=== PATIENT | female | born 1985 | race African-American/Black ===

== ENCOUNTER 2018-08-11 08:08 | Emergency (ER) | payer OTHER, MEDICAID ==
[~2018-08-11] VITALS: Ht 162.6 cm; Wt 72.6 kg
[2018-08-11 09:10] VITALS: BP 138/98
[2018-08-11] MEDS ORDERED: LORazepam 0.5 MG TAB PO ONE (10:30)
== END 2018-08-11 10:33 | disposition home or self-care (01) ==
LOC: ER 08:08 → EDBD 08:08 → ER 10:33
DX: F41.9 Anxiety disorder, unspecified (principal); I12.9 Hypertensive chronic kidney disease with stage 1 through stage 4 chronic kidney disease, or unspecified chronic kidney disease; N18.9 Chronic kidney disease, unspecified
CPT/HCPCS: 70450

== ENCOUNTER 2020-04-26 12:13 | Emergency (ER) | payer OTHER, MEDICAID ==
[~2020-04-26] VITALS: Ht 160 cm; Wt 77.1 kg
[2020-04-26 12:30] VITALS: BP 109/57
[2020-04-26 13:44] LABS: Albumin 3.5 g/dL (3.4-5.0); Anion Gap 11 (5-15); Basophils # (auto) 0.1 10 ^3/uL (0-0.2); Basophils % (auto) 0.8 % (0.0-2.0); Blood Urea Nitrogen 42 mg/dL (7-18); Carbon Dioxide 29 mmol/L (21-32); Chloride 98 mmol/L (98-107); Eosinophils # (auto) 0.2 10 ^3/uL (0-0.8); Eosinophils % (auto) 2.8 % (0.0-7.0); Glucose 88 mg/dL (74-106); Hematocrit 28.4 % (36.0-46.0); Hemoglobin 9.5 g/dL (12.2-16.2); Lymphocytes # (auto) 2.5 10 ^3/uL (0.4-5.4); Lymphocytes % (auto) 35.4 % (10.0-50.0); Mean Corpuscular Hemoglobin 33.4 pg (28.0-32.0); Mean Corpuscular Hgb Conc. 33.3 g/dL (32.0-36.0); Mean Corpuscular Volume 100.2 fL (80.0-100.0); Monocytes # (auto) 0.4 10 ^3/uL (0-1.3); Monocytes % (auto) 5.2 % (0.0-12.0); Neutrophils % (auto) 55.8 % (37.0-80.0); Nucleated Red Blood Cells % 0.1 %; Platelet Count (auto) 189 10^3/uL (140-450); Potassium 4.2 mmol/L (3.5-5.1); Red Blood Cells 2.83 10^6/uL (4.0-5.20); Red Cell Distribution Width 15.4 % (11.8-14.3); Sodium 138 mmol/L (136-145); White Blood Cell 7.2 10^3/uL (4.4-10.8)
[2020-04-26 13:49] LABS: Alanine Aminotransferase 10 U/L (13-56); Alkaline Phosphatase 98 U/L (45-117); Aspartate Aminotransferase 7 U/L (15-37); BUN/Creatinine Ratio 2.7; Bilirubin, Total 0.4 mg/dL (0.2-1.0); GFR African American 4 mL/min; GFR Non-African American 3 mL/min; Total Protein 7.8 g/dL (6.4-8.2)
[2020-04-26 14:18] LABS: INR 1.1 (0.9-1.15); Partial Thromboplastin Time 27.9 sec (23.0-31.2)
== END 2020-04-26 17:01 | disposition home or self-care (01) ==
LOC: ER 12:13
DX: N18.6 End stage renal disease (principal); Z99.2 Dependence on renal dialysis
CPT/HCPCS: 36415; 71045; 80053; 83880; 84484; 85025; 85610; 85730

== ENCOUNTER 2021-03-09 10:26 | Inpatient (IN) | payer OTHER, MEDICAID ==
[~2021-03-09] VITALS: Ht 160 cm; Wt 72.5 kg
[2021-03-09] MEDS ORDERED: PANTOPRAZOLE 40 MG/10 ML VIAL INJ IV ONE (11:00)
[2021-03-09] MEDS ORDERED: MORPHINE SULFATE 4 MG/ML SYR/VIAL IV ONE (11:00)
[2021-03-09] MEDS ORDERED: PROCHLORPERAZINE EDISYLATE 5 MG/ML 2ML VIAL IV ONE (11:00)
[2021-03-09 11:25] LABS: Basophils # (auto) 0.1 10 ^3/uL (0-0.2); Basophils % (auto) 1.1 % (0.0-2.0); Eosinophils # (auto) 0.1 10 ^3/uL (0-0.8); Eosinophils % (auto) 2.2 % (0.0-7.0); Lymphocytes # (auto) 1.9 10 ^3/uL (0.4-5.4); Lymphocytes % (auto) 36.5 % (10.0-50.0); Mean Corpuscular Hemoglobin 32.9 pg (28.0-32.0); Mean Corpuscular Hgb Conc. 33.5 g/dL (32.0-36.0); Mean Corpuscular Volume 98.1 fL (80.0-100.0); Monocytes # (auto) 0.4 10 ^3/uL (0-1.3); Monocytes % (auto) 7.4 % (0.0-12.0); Neutrophils # (auto) 2.7 10 ^3/uL (1.6-8.6); Neutrophils % (auto) 52.8 % (37.0-80.0); Nucleated Red Blood Cells % 0.1 %; Red Blood Cells 2.75 10^6/uL (4.0-5.20); White Blood Cell 5.2 10^3/uL (4.4-10.8)
[2021-03-09] MEDS ORDERED: HYDROmorphone HCL 2 MG/ML VL IV ONE (11:30)
[2021-03-09 11:40] LABS: Potassium 3.8 mmol/L (3.5-5.1)
[2021-03-09 11:47] LABS: Albumin 3.7 g/dL (3.4-5.0); BUN/Creatinine Ratio 2.9; Bilirubin, Total 0.4 mg/dL (0.2-1.0); Calcium 9.5 mg/dL (8.5-10.1); Total Protein 7.8 g/dL (6.4-8.2)
[2021-03-09] MEDS ORDERED: NITROGLYCERIN 0.4 MG SL TAB SL PRN (13:30)
[2021-03-09] MEDS ORDERED: MORPHINE SULFATE INJECTION 2 MG/ML SYRG IV PRN (13:30)
[2021-03-09] MEDS ORDERED: LABETALOL HCL 5 MG/ML 4ML SYRINGE IV ONE (13:45)
[2021-03-09] MEDS ORDERED: hydrALAZINE HCL 20 MG/ML VL IV ONE (13:45)
[2021-03-09] MEDS ORDERED: HYDROmorphone HCL 2 MG/ML VL IV PRN (13:45)
[2021-03-09] MEDS ORDERED: LABETALOL HCL 5 MG/ML ML 20ML VIAL IV ONE (14:11)
[2021-03-09] MEDS ORDERED: ISOSORBIDE MONONITRATE ER 60 MG TAB PO ONE (14:30)
[2021-03-09] MEDS ORDERED: BUMETANIDE 2.5mg/10ml (0.25 mg/ml) INJ IV ONE (14:30)
[2021-03-09] MEDS ORDERED: SUCRALFATE 1 GM TAB PO ONE (14:45)
[2021-03-09] MEDS ORDERED: LABETALOL HCL 5 MG/ML ML 20ML VIAL IV PRN (15:30)
[2021-03-09] MEDS ORDERED: hydrALAZINE HCL 20 MG/ML VL IV PRN (15:30)
[2021-03-09] MEDS ORDERED: diphenhdrAMINE HCL 50 MG/1 ML VL IV ONE (15:45)
[2021-03-09] MEDS: BUMETANIDE 2.5mg/10ml (0.25 mg/ml) INJ IV SCH (15:54)
[2021-03-09] MEDS: HYDROmorphone HCL 2 MG/ML VL IV PRN (15:55)
[2021-03-09] MEDS: ONDANSETRON HCL 4 MG/2 ML VIAL IV PRN (15:56)
[2021-03-09] MEDS: LATANOPROST 0.005 % OPTH(EYE) SOL 2.5ML EACHEYE SCH (22:00)
[2021-03-09] MEDS: SUCRALFATE 1 GM TAB PO SCH (22:32)
[2021-03-09] MEDS: VENLAFAXINE HCL 37.5MG TABLET PO SCH (22:34)
[2021-03-09] MEDS: GABAPENTIN 100 MG CAP PO SCH (22:35)
[2021-03-09] MEDS: APIXABAN 5 MG TAB PO SCH (22:35)
[2021-03-09] MEDS: QUEtiapine FUMARATE 100 MG TAB PO SCH (22:36)
[2021-03-10 05:35] VITALS: BP 153/100
[2021-03-10] MEDS: GABAPENTIN 100 MG CAP PO SCH ×3 (06:18→21:13)
[2021-03-10] MEDS: BUMETANIDE 2.5mg/10ml (0.25 mg/ml) INJ IV SCH ×2 (06:18→17:13)
[2021-03-10] MEDS: SUCRALFATE 1 GM TAB PO SCH ×4 (06:19→21:11)
[2021-03-10 07:36] LABS: Basophils # (auto) 0 10 ^3/uL (0-0.2); Basophils % (auto) 0.5 % (0.0-2.0); Eosinophils # (auto) 0.1 10 ^3/uL (0-0.8); Eosinophils % (auto) 0.9 % (0.0-7.0); Hematocrit 25.6 % (36.0-46.0); Hemoglobin 8.5 g/dL (12.2-16.2); Lymphocytes # (auto) 1.7 10 ^3/uL (0.4-5.4); Lymphocytes % (auto) 25.5 % (10.0-50.0); Mean Corpuscular Hemoglobin 32.6 pg (28.0-32.0); Mean Corpuscular Hgb Conc. 33.3 g/dL (32.0-36.0); Mean Corpuscular Volume 97.8 fL (80.0-100.0); Monocytes # (auto) 0.4 10 ^3/uL (0-1.3); Monocytes % (auto) 5.5 % (0.0-12.0); Neutrophils # (auto) 4.6 10 ^3/uL (1.6-8.6); Neutrophils % (auto) 67.6 % (37.0-80.0); Nucleated Red Blood Cells % 0.1 %; Red Blood Cells 2.61 10^6/uL (4.0-5.20); Red Cell Distribution Width 15.1 % (11.8-14.3); White Blood Cell 6.8 10^3/uL (4.4-10.8)
[2021-03-10 07:40] LABS: Potassium 3.9 mmol/L (3.5-5.1)
[2021-03-10 07:55] LABS: Albumin 3.5 g/dL (3.4-5.0); BUN/Creatinine Ratio 2.7; Bilirubin, Total 0.4 mg/dL (0.2-1.0); Calcium 9.3 mg/dL (8.5-10.1); Magnesium 3.8 mg/dL (1.6-2.6); Phosphorus 6.7 mg/dL (2.5-4.90); Total Protein 7.5 g/dL (6.4-8.2); Uric Acid 8.4 mg/dL (2.6-6.0)
[2021-03-10 08:00] VITALS: BP 199/103
[2021-03-10 08:04] LABS: % Iron Saturation 25.6 % (15-50)
[2021-03-10] MEDS: HYDROmorphone HCL 2 MG/ML VL IV PRN ×2 (08:25→21:16)
[2021-03-10] MEDS: ONDANSETRON HCL 4 MG/2 ML VIAL IV PRN ×2 (08:26→21:15)
[2021-03-10] MEDS ORDERED: LACTULOSE 20Gm/30ML SOLN PO PRN (09:45)
[2021-03-10] MEDS: VENLAFAXINE HCL 37.5MG TABLET PO SCH ×2 (09:46→21:12)
[2021-03-10] MEDS: APIXABAN 5 MG TAB PO SCH ×2 (09:46→21:12)
[2021-03-10] MEDS: PANTOPRAZOLE 40 MG/10 ML VIAL INJ IV SCH (10:00)
[2021-03-10] MEDS: FERRIC CITRATE 210 MG PO SCH (10:00)
[2021-03-10 10:26] LABS: INR 1.16 (0.9-1.15); Partial Thromboplastin Time 29.3 sec (23.6-33.0)
[2021-03-10] MEDS ORDERED: diphenhdrAMINE HCL 50 MG/1 ML VL IV ONE (11:15)
[2021-03-10 12:00] VITALS: BP 173/101
[2021-03-10] MEDS ORDERED: cloNIDine HCL 0.1 MG TAB PO ONE (14:30)
[2021-03-10] MEDS ORDERED: PANT40TA2 PO (14:41)
[2021-03-10] MEDS ORDERED: SUCR1TAB PO (14:41)
[2021-03-10 16:00] VITALS: BP 141/82
[2021-03-10] MEDS ORDERED: cloNIDine HCL 0.1 MG TAB PO PRN (16:00)
[2021-03-10] MEDS ORDERED: ACETAMINOPHEN 325 MG TAB PO PRN (19:45)
[2021-03-10] MEDS: QUEtiapine FUMARATE 100 MG TAB PO SCH (21:14)
[2021-03-10] MEDS: LATANOPROST 0.005 % OPTH(EYE) SOL 2.5ML EACHEYE SCH (21:21)
[2021-03-10 22:00] VITALS: BP 159/118
[2021-03-11 05:00] VITALS: BP 163/97
[2021-03-11] MEDS: GABAPENTIN 100 MG CAP PO SCH (06:14)
[2021-03-11] MEDS: BUMETANIDE 2.5mg/10ml (0.25 mg/ml) INJ IV SCH (06:14)
[2021-03-11] MEDS: SUCRALFATE 1 GM TAB PO SCH (06:15)
[2021-03-11 07:24] LABS: Potassium 3.7 mmol/L (3.5-5.1)
[2021-03-11 07:50] LABS: BUN/Creatinine Ratio 2.3; Calcium 9.3 mg/dL (8.5-10.1)
[2021-03-11] MEDS: FERRIC CITRATE 210 MG PO SCH (10:00)
[2021-03-11] MEDS: PANTOPRAZOLE 40 MG/10 ML VIAL INJ IV SCH (10:00)
[2021-03-11] MEDS: APIXABAN 5 MG TAB PO SCH (10:00)
[2021-03-11] MEDS: VENLAFAXINE HCL 37.5MG TABLET PO SCH (10:02)
[2021-03-11] MEDS: ONDANSETRON HCL 4 MG/2 ML VIAL IV PRN (10:45)
[2021-03-11 12:43] VITALS: BP 173/98
[2021-03-11 15:18] VITALS: BP 167/103
[2021-03-11 16:45] VITALS: BP 156/88
== END 2021-03-11 17:45 | disposition home or self-care (01) | DRG 391 ==
LOC: ER 10:26 → EDBD 10:26 → UNDOADMIN 13:19 → TELE 13:19 → TELE-CENTR 18:20 → TELE 18:20
PROVIDERS: ADMIT Hospitalist; ATTEND Internal Medicine Geriatric Medicine
PROC: 5A1D70Z Performance of Urinary Filtration, Intermittent, Less than 6 Hours Per Day (ICD-10-PCS; principal; 2021-03-10)
DX: K29.70 Gastritis, unspecified, without bleeding (principal); K85.90 Acute pancreatitis without necrosis or infection, unspecified; N18.6 End stage renal disease; I12.0 Hypertensive chronic kidney disease with stage 5 chronic kidney disease or end stage renal disease; I16.1 Hypertensive emergency; I27.82 Chronic pulmonary embolism; F32.9 Major depressive disorder, single episode, unspecified; K21.9 Gastro-esophageal reflux disease without esophagitis; D63.1 Anemia in chronic kidney disease; E66.01 Morbid (severe) obesity due to excess calories; F17.210 Nicotine dependence, cigarettes, uncomplicated; K59.00 Constipation, unspecified; Z20.822 Contact with and (suspected) exposure to COVID-19; Z79.01 Long term (current) use of anticoagulants; Z99.2 Dependence on renal dialysis; Z68.23 Body mass index [BMI] 23.0-23.9, adult; Z88.6 Allergy status to analgesic agent
CPT/HCPCS: 36415; 74176; 76705; 80048; 80053; 80061; 82150; 82306; 83036; 83540; 83550; 83690; 83735; 83880; 84100; 84443; 84484; 84550; 84702; 85025; 85379; 85610; 85730; 87040; 87426; 90935; 96374; 96375; C9113; G0378; J2405

== ENCOUNTER 2021-08-18 06:21 | Inpatient (IN) | payer OTHER, MEDICAID ==
[~2021-08-18] VITALS: Ht 165.1 cm; Wt 71.4 kg
[~2021-08-18 06:21] MED LIST: PANT40TA2 PO; SUCR1TAB PO
[2021-08-18] MEDS ORDERED: ASPirin 325 MG TAB PO ONE (07:00)
[2021-08-18 07:27] LABS: Basophils # (auto) 0 10 ^3/uL (0-0.2); Basophils % (auto) 1.3 % (0.0-2.0); Eosinophils # (auto) 0 10 ^3/uL (0-0.8); Hematocrit 33.3 % (36.0-46.0); Hemoglobin 10.8 g/dL (12.2-16.2); Lymphocytes # (auto) 0.5 10 ^3/uL (0.4-5.4); Mean Corpuscular Hemoglobin 32.4 pg (28.0-32.0); Mean Corpuscular Hgb Conc. 32.4 g/dL (32.0-36.0); Monocytes # (auto) 0.4 10 ^3/uL (0-1.3); Monocytes % (auto) 11.8 % (0.0-12.0); Neutrophils # (auto) 2.5 10 ^3/uL (1.6-8.6); Neutrophils % (auto) 71.9 % (37.0-80.0); Nucleated Red Blood Cells % 0.3 %; Red Blood Cells 3.33 10^6/uL (4.0-5.20); Red Cell Distribution Width 17.1 % (11.8-14.3); White Blood Cell 3.4 10^3/uL (4.4-10.8)
[2021-08-18 07:44] LABS: Albumin 3.9 g/dL (3.4-5.0); BUN/Creatinine Ratio 3.9; Calcium 10.3 mg/dL (8.5-10.1); Magnesium 2.7 mg/dL (1.6-2.6)
[2021-08-18 07:47] LABS: Bilirubin, Total 0.8 mg/dL (0.2-1.0); INR 1.29 (0.9-1.15); Partial Thromboplastin Time 31.6 sec (24.6-33.4); Total Protein 8.3 g/dL (6.4-8.2)
[2021-08-18] MEDS ORDERED: PANTOPRAZOLE 40 MG/10 ML VIAL INJ IV ONE (08:00)
[2021-08-18] MEDS ORDERED: LORazepam 2MG/ML-1ML VIAL IV ONE (08:30)
[2021-08-18] MEDS ORDERED: NITROGLYCERIN 0.4 MG SL TAB SL ONE ×2 (09:15→09:45)
[2021-08-18] MEDS ORDERED: cloNIDine HCL 0.1 MG TAB PO ONE (11:15)
[2021-08-18] MEDS ORDERED: LABETALOL HCL 5 MG/ML 4ML SYRINGE IV ONE (12:00)
[2021-08-18] MEDS ORDERED: HYDROcodone-ACET 5/325MG TAB PO PRN (13:45)
[2021-08-18] MEDS ORDERED: DOCUSATE SOD 100 MG CAP PO PRN (13:45)
[2021-08-18] MEDS ORDERED: ACETAMINOPHEN 325 MG TAB PO PRN (13:45)
[2021-08-18] MEDS: SODIUM CHLOR 0.9% PF (SALINE LOCK) 10ML VIAL/SYR IV SCH ×2 (14:40→21:59)
[2021-08-18] MEDS: HEPARIN SODIUM (PORCINE) 5000 UNITS/ML 1ML VIAL SC SCH ×2 (15:07→22:03)
[2021-08-18] MEDS ORDERED: ALBUTEROL SULF 2.5 MG/0.5ML(0.5%) NEB SOLN NEB ONE (16:30)
[2021-08-18 17:04] VITALS: BP 195/104
[2021-08-18] MEDS ORDERED: ALBUTEROL SULF 2.5 MG/0.5ML(0.5%) NEB SOLN NEB SCH (18:00)
[2021-08-18] MEDS ORDERED: IPRATROPIUM BROM 0.5 MG/2.5ML INH SOL NEB SCH (18:00)
[2021-08-18] MEDS: SUCRALFATE 1 GM TAB PO SCH ×2 (19:13→21:59)
[2021-08-18] MEDS: ALBUTEROL SULF HFA 90MCG INH 200DOSE IN SCH (21:58)
[2021-08-18] MEDS: HYDROmorphone HCL 2 MG/ML VL/or syr IV PRN (22:12)
[2021-08-19] MEDS: ONDANSETRON HCL 4 MG/2 ML VIAL IV PRN ×2 (00:57→04:56)
[2021-08-19] MEDS: HYDROmorphone HCL 2 MG/ML VL/or syr IV PRN ×5 (03:00→20:02)
[2021-08-19] MEDS: SODIUM CHLOR 0.9% PF (SALINE LOCK) 10ML VIAL/SYR IV SCH ×3 (06:18→21:54)
[2021-08-19] MEDS: HEPARIN SODIUM (PORCINE) 5000 UNITS/ML 1ML VIAL SC SCH ×3 (06:21→22:00)
[2021-08-19] MEDS: ALBUTEROL SULF HFA 90MCG INH 200DOSE IN SCH ×3 (06:59→23:41)
[2021-08-19] MEDS: SUCRALFATE 1 GM TAB PO SCH ×4 (07:00→23:21)
[2021-08-19] MEDS ORDERED: PANTOPRAZOLE 40 MG/10 ML VIAL INJ IV ONE (09:00)
[2021-08-19] MEDS ORDERED: PANTOPRAZOLE 40 MG/10 ML VIAL INJ IV SCH (10:00)
[2021-08-19] MEDS ORDERED: PANTOPRAZOLE 40 MG TAB PO SCH (10:00)
[2021-08-19 11:59] LABS: Basophils # (auto) 0 10 ^3/uL (0-0.2); Basophils % (auto) 0.5 % (0.0-2.0); Eosinophils # (auto) 0 10 ^3/uL (0-0.8); Hematocrit 32.2 % (36.0-46.0); Hemoglobin 10.4 g/dL (12.2-16.2); Lymphocytes # (auto) 1.6 10 ^3/uL (0.4-5.4); Lymphocytes % (auto) 24.5 % (10.0-50.0); Mean Corpuscular Hemoglobin 32.3 pg (28.0-32.0); Mean Corpuscular Hgb Conc. 32.4 g/dL (32.0-36.0); Mean Corpuscular Volume 99.5 fL (80.0-100.0); Monocytes # (auto) 0.4 10 ^3/uL (0-1.3); Monocytes % (auto) 5.9 % (0.0-12.0); Neutrophils # (auto) 4.5 10 ^3/uL (1.6-8.6); Neutrophils % (auto) 69.1 % (37.0-80.0); Nucleated Red Blood Cells % 0.2 %; Red Blood Cells 3.23 10^6/uL (4.0-5.20); Red Cell Distribution Width 16.7 % (11.8-14.3); White Blood Cell 6.6 10^3/uL (4.4-10.8)
[2021-08-19] MEDS ORDERED: CHOLECALCIFEROL (VITD3) 2,000 UNIT CAP/TAB PO ONE (12:00)
[2021-08-19] MEDS ORDERED: NIFEdipine ER 30 MG TAB PO ONE (12:00)
[2021-08-19] MEDS ORDERED: ZINC SULFATE 220mg CAP or TAB PO ONE (12:00)
[2021-08-19] MEDS ORDERED: ASCORBIC ACID 500 MG TAB PO ONE (12:00)
[2021-08-19] MEDS ORDERED: CARVEDILOL 12.5 MG TAB PO ONE (12:00)
[2021-08-19 12:03] LABS: Albumin 3.5 g/dL (3.4-5.0); Calcium 9.3 mg/dL (8.5-10.1); Potassium 4.3 mmol/L (3.5-5.1)
[2021-08-19 12:07] LABS: BUN/Creatinine Ratio 4.9; Bilirubin, Total 0.8 mg/dL (0.2-1.0); Total Protein 7.5 g/dL (6.4-8.2)
[2021-08-19] MEDS ORDERED: diphenhdrAMINE HCL 50 MG/1 ML VL IV ONE (13:30)
[2021-08-19] MEDS ORDERED: diphenhdrAMINE HCL 50 MG/1 ML VL ONE (13:39)
[2021-08-19] MEDS ORDERED: SODIUM CHL 0.9% 1000 ML BAG XX ONE (17:15)
[2021-08-19] MEDS: PANTOPRAZOLE 40 MG/10 ML VIAL INJ IV SCH (23:21)
[2021-08-19] MEDS: CARVEDILOL 12.5 MG TAB PO SCH (23:24)
[2021-08-20] VITALS (44 sets, daily range): BP systolic 124–179; BP diastolic 65–110
[2021-08-20] MEDS: HEPARIN SODIUM (PORCINE) 5000 UNITS/ML 1ML VIAL SC SCH ×3 (06:00→22:40)
[2021-08-20] MEDS: SODIUM CHLOR 0.9% PF (SALINE LOCK) 10ML VIAL/SYR IV SCH ×3 (06:06→20:33)
[2021-08-20] MEDS: ALBUTEROL SULF HFA 90MCG INH 200DOSE IN SCH ×3 (06:06→18:21)
[2021-08-20] MEDS: SUCRALFATE 1 GM TAB PO SCH ×4 (07:22→20:37)
[2021-08-20] MEDS: PANTOPRAZOLE 40 MG/10 ML VIAL INJ IV SCH ×2 (09:11→20:32)
[2021-08-20] MEDS: cefTRIAXone 1GM/50ML D5W 50 ML IV SCH (09:11)
[2021-08-20] MEDS: DexAMETHasone SOD PHOS 10MG/1ML VIAL INJ IV SCH (09:12)
[2021-08-20] MEDS: CARVEDILOL 12.5 MG TAB PO SCH ×2 (09:13→20:36)
[2021-08-20] MEDS: ZINC SULFATE 220mg CAP or TAB PO SCH (09:13)
[2021-08-20] MEDS: CHOLECALCIFEROL (VITD3) 2,000 UNIT CAP/TAB PO SCH (09:13)
[2021-08-20] MEDS: NIFEdipine ER 30 MG TAB PO SCH (09:14)
[2021-08-20] MEDS: ASCORBIC ACID 500 MG TAB PO SCH (09:15)
[2021-08-20] MEDS: HYDROmorphone HCL 2 MG/ML VL/or syr IV PRN ×2 (09:19→23:55)
[2021-08-20 09:42] LABS: Basophils # (auto) 0 10 ^3/uL (0-0.2); Basophils % (auto) 0.5 % (0.0-2.0); Eosinophils # (auto) 0 10 ^3/uL (0-0.8); Eosinophils % (auto) 0.1 % (0.0-7.0); Hematocrit 31.2 % (36.0-46.0); Lymphocytes # (auto) 1.1 10 ^3/uL (0.4-5.4); Lymphocytes % (auto) 21.1 % (10.0-50.0); Mean Corpuscular Hemoglobin 32.3 pg (28.0-32.0); Mean Corpuscular Hgb Conc. 32.2 g/dL (32.0-36.0); Mean Corpuscular Volume 100.1 fL (80.0-100.0); Monocytes # (auto) 0.4 10 ^3/uL (0-1.3); Monocytes % (auto) 7.1 % (0.0-12.0); Neutrophils # (auto) 3.7 10 ^3/uL (1.6-8.6); Neutrophils % (auto) 71.2 % (37.0-80.0); Red Blood Cells 3.11 10^6/uL (4.0-5.20); Red Cell Distribution Width 16.8 % (11.8-14.3); White Blood Cell 5.2 10^3/uL (4.4-10.8)
[2021-08-20 09:53] LABS: BUN/Creatinine Ratio 4.9; Calcium 8.9 mg/dL (8.5-10.1); Potassium 4.2 mmol/L (3.5-5.1)
[2021-08-20] MEDS: OXYCODONE W/ ACETAMINOPHEN 5/325MG TABLET PO PRN ×2 (14:10→20:38)
[2021-08-20] MEDS ORDERED: CYCL-839 PO (15:54)
[2021-08-20] MEDS ORDERED: QUET50TA PO (15:54)
[2021-08-20] MEDS ORDERED: GABA300C10 PO (15:54)
[2021-08-20] MEDS ORDERED: LATA0.0019 EACHEYE (15:54)
[2021-08-20] MEDS ORDERED: BUME2TAB5 PO (15:54)
[2021-08-20] MEDS ORDERED: CARV12.544 PO (15:54)
[2021-08-20] MEDS ORDERED: APIX5TAB PO (15:54)
[2021-08-20] MEDS ORDERED: PERCOT PO (15:54)
[2021-08-20] MEDS ORDERED: AMLO-496 PO (15:54)
[2021-08-20] MEDS ORDERED: QUET200T30 PO (15:54)
[2021-08-20] MEDS ORDERED: ALPR1TAB7 PO (15:54)
[2021-08-20] MEDS: cloNIDine HCL 0.1 MG TAB PO PRN (16:33)
[2021-08-21] VITALS (8 sets, daily range): BP systolic 131–162; BP diastolic 73–100
[2021-08-21] MEDS: OXYCODONE W/ ACETAMINOPHEN 5/325MG TABLET PO PRN ×3 (02:37→16:56)
[2021-08-21 03:48] LABS: Basophils # (auto) 0 10 ^3/uL (0-0.2); Basophils % (auto) 0.1 % (0.0-2.0); Eosinophils # (auto) 0 10 ^3/uL (0-0.8); Eosinophils % (auto) 0.1 % (0.0-7.0); Hematocrit 28.6 % (36.0-46.0); Hemoglobin 9.5 g/dL (12.2-16.2); Lymphocytes # (auto) 0.7 10 ^3/uL (0.4-5.4); Lymphocytes % (auto) 29.7 % (10.0-50.0); Mean Corpuscular Hemoglobin 32.2 pg (28.0-32.0); Mean Corpuscular Hgb Conc. 33.1 g/dL (32.0-36.0); Mean Corpuscular Volume 97.4 fL (80.0-100.0); Monocytes # (auto) 0.2 10 ^3/uL (0-1.3); Monocytes % (auto) 9.2 % (0.0-12.0); Neutrophils # (auto) 1.5 10 ^3/uL (1.6-8.6); Neutrophils % (auto) 60.9 % (37.0-80.0); Nucleated Red Blood Cells % 0.1 %; Red Blood Cells 2.94 10^6/uL (4.0-5.20); White Blood Cell 2.4 10^3/uL (4.4-10.8)
[2021-08-21 03:58] LABS: BUN/Creatinine Ratio 5.5; Calcium 8.3 mg/dL (8.5-10.1); Potassium 4.7 mmol/L (3.5-5.1)
[2021-08-21] MEDS: HEPARIN SODIUM (PORCINE) 5000 UNITS/ML 1ML VIAL SC SCH ×2 (06:00→22:00)
[2021-08-21] MEDS: ALBUTEROL SULF HFA 90MCG INH 200DOSE IN SCH ×4 (06:00→22:15)
[2021-08-21] MEDS: SODIUM CHLOR 0.9% PF (SALINE LOCK) 10ML VIAL/SYR IV SCH ×3 (06:00→21:52)
[2021-08-21] MEDS ORDERED: SODIUM CHL 0.9% 1000 ML BAG XX ONE (07:00)
[2021-08-21] MEDS: SUCRALFATE 1 GM TAB PO SCH ×4 (07:48→21:50)
[2021-08-21] MEDS: cefTRIAXone 1GM/50ML D5W 50 ML IV SCH (08:45)
[2021-08-21] MEDS: ZINC SULFATE 220mg CAP or TAB PO SCH (09:33)
[2021-08-21] MEDS: CARVEDILOL 12.5 MG TAB PO SCH ×2 (09:33→21:51)
[2021-08-21] MEDS: ASCORBIC ACID 500 MG TAB PO SCH (09:33)
[2021-08-21] MEDS: NIFEdipine ER 30 MG TAB PO SCH (09:34)
[2021-08-21] MEDS: DexAMETHasone SOD PHOS 10MG/1ML VIAL INJ IV SCH (11:39)
[2021-08-21] MEDS: PANTOPRAZOLE 40 MG/10 ML VIAL INJ IV SCH ×2 (11:40→21:50)
[2021-08-21] MEDS: CHOLECALCIFEROL (VITD3) 2,000 UNIT CAP/TAB PO SCH (11:41)
[2021-08-21] MEDS ORDERED: NIFEdipine ER 30 MG TAB PO ONE (11:45)
[2021-08-21] MEDS ORDERED: diphenhdrAMINE HCL 25 MG CAP PO PRN (12:30)
[2021-08-21] MEDS: cloNIDine HCL 0.1 MG TAB PO PRN (17:04)
[2021-08-21] MEDS: HYDROmorphone HCL 2 MG/ML VL/or syr IV PRN (23:49)
[2021-08-22 05:00] VITALS: BP 162/98
[2021-08-22 05:45] LABS: Basophils # (auto) 0 10 ^3/uL (0-0.2); Basophils % (auto) 0.1 % (0.0-2.0); Eosinophils # (auto) 0 10 ^3/uL (0-0.8); Lymphocytes # (auto) 0.8 10 ^3/uL (0.4-5.4); Lymphocytes % (auto) 20.5 % (10.0-50.0); Mean Corpuscular Hemoglobin 32.5 pg (28.0-32.0); Mean Corpuscular Hgb Conc. 32.2 g/dL (32.0-36.0); Mean Corpuscular Volume 100.7 fL (80.0-100.0); Monocytes # (auto) 0.3 10 ^3/uL (0-1.3); Monocytes % (auto) 8.4 % (0.0-12.0); Neutrophils # (auto) 2.7 10 ^3/uL (1.6-8.6); Nucleated Red Blood Cells % 0.1 %; Red Blood Cells 3.08 10^6/uL (4.0-5.20); Red Cell Distribution Width 16.2 % (11.8-14.3); White Blood Cell 3.8 10^3/uL (4.4-10.8)
[2021-08-22] MEDS: HEPARIN SODIUM (PORCINE) 5000 UNITS/ML 1ML VIAL SC SCH ×2 (06:00→14:00)
[2021-08-22 06:01] LABS: Calcium 8.8 mg/dL (8.5-10.1); Potassium 4.2 mmol/L (3.5-5.1)
[2021-08-22 06:04] LABS: BUN/Creatinine Ratio 5.4
[2021-08-22] MEDS: ALBUTEROL SULF HFA 90MCG INH 200DOSE IN SCH ×2 (06:25→14:00)
[2021-08-22] MEDS: SODIUM CHLOR 0.9% PF (SALINE LOCK) 10ML VIAL/SYR IV SCH ×2 (06:40→14:00)
[2021-08-22] MEDS: SUCRALFATE 1 GM TAB PO SCH ×3 (06:41→17:00)
[2021-08-22] MEDS: cloNIDine HCL 0.1 MG TAB PO PRN ×2 (07:10→16:08)
[2021-08-22 09:00] VITALS: BP 161/105
[2021-08-22] MEDS: PANTOPRAZOLE 40 MG/10 ML VIAL INJ IV SCH (09:33)
[2021-08-22] MEDS: DexAMETHasone SOD PHOS 10MG/1ML VIAL INJ IV SCH (09:33)
[2021-08-22] MEDS: cefTRIAXone 1GM/50ML D5W 50 ML IV SCH (09:33)
[2021-08-22] MEDS: ZINC SULFATE 220mg CAP or TAB PO SCH (09:34)
[2021-08-22] MEDS: CARVEDILOL 12.5 MG TAB PO SCH (09:35)
[2021-08-22] MEDS: CHOLECALCIFEROL (VITD3) 2,000 UNIT CAP/TAB PO SCH (09:36)
[2021-08-22] MEDS: ASCORBIC ACID 500 MG TAB PO SCH (09:37)
[2021-08-22] MEDS: OXYCODONE W/ ACETAMINOPHEN 5/325MG TABLET PO PRN (09:51)
[2021-08-22] MEDS ORDERED: NIFEdipine ER 30 MG TAB PO SCH (10:00)
[2021-08-22] MEDS ORDERED: CARVEDILOL 12.5 MG TAB PO ONE (11:15)
[2021-08-22] MEDS ORDERED: LISINOPRIL 20 MG TAB PO ONE (11:15)
[2021-08-22] MEDS ORDERED: CHOL1CAP47 PO (11:54)
[2021-08-22] MEDS ORDERED: ASCO500T11 PO (11:54)
[2021-08-22] MEDS ORDERED: LISI20TA28 PO (11:54)
[2021-08-22] MEDS ORDERED: DEXA6TAB PO (11:54)
[2021-08-22] MEDS ORDERED: ZINC220C10 PO (11:57)
[2021-08-22 13:00] VITALS: BP 151/91
[2021-08-22 17:00] VITALS: BP 149/95
[2021-08-22 17:40] VITALS: BP 149/95
[2021-08-22] MEDS ORDERED: LISINOPRIL 20 MG TAB PO SCH (22:00)
[2021-08-22] MEDS ORDERED: CARVEDILOL 12.5 MG TAB PO SCH (22:00)
== END 2021-08-22 18:25 | disposition home or self-care (01) | DRG 177 ==
LOC: ER 06:21 → EDBD 06:21 → TELE 13:45 → ICU WEST 08-20 07:26 → TELE-WESTW 08-21 03:55
PROVIDERS: ADMIT Internal Medicine; ATTEND Internal Medicine Geriatric Medicine
PROC: 5A1D70Z Performance of Urinary Filtration, Intermittent, Less than 6 Hours Per Day (ICD-10-PCS; 2021-08-19)
PROC: 5A1D70Z Performance of Urinary Filtration, Intermittent, Less than 6 Hours Per Day (ICD-10-PCS; principal; 2021-08-21)
DX: U07.1 COVID-19 (principal); I21.4 Non-ST elevation (NSTEMI) myocardial infarction; I50.33 Acute on chronic diastolic (congestive) heart failure; N18.6 End stage renal disease; J96.00 Acute respiratory failure, unspecified whether with hypoxia or hypercapnia; K85.90 Acute pancreatitis without necrosis or infection, unspecified; I13.2 Hypertensive heart and chronic kidney disease with heart failure and with stage 5 chronic kidney disease, or end stage renal disease; I16.1 Hypertensive emergency; J98.11 Atelectasis; F31.30 Bipolar disorder, current episode depressed, mild or moderate severity, unspecified; K92.2 Gastrointestinal hemorrhage, unspecified; D63.1 Anemia in chronic kidney disease; G40.909 Epilepsy, unspecified, not intractable, without status epilepticus; E83.39 Other disorders of phosphorus metabolism; F12.90 Cannabis use, unspecified, uncomplicated; F17.210 Nicotine dependence, cigarettes, uncomplicated; G89.4 Chronic pain syndrome; Z91.15 Patient's noncompliance with renal dialysis; Z99.2 Dependence on renal dialysis; Z86.711 Personal history of pulmonary embolism; Z88.5 Allergy status to narcotic agent
CPT/HCPCS: 36415; 71045; 80048; 80053; 80061; 82728; 83735; 83880; 84443; 84484; 85025; 85379; 85610; 85730; 87081; 90935; 93005; 94640; 96374; 96375; 99291; C9113; G0378; J0696; J1100; J2405; J3490

== ENCOUNTER 2022-05-16 15:24 | Inpatient (IN) | payer OTHER, MEDICAID ==
[~2022-05-16] VITALS: Ht 160 cm; Wt 79.0 kg
[~2022-05-16 15:24] MED LIST changes: +ALPR1TAB7 PO; +AMLO-496 PO; +APIX5TAB PO; +ASCO500T11 PO; +BUME2TAB5 PO; +CHOL1CAP47 PO; +CYCL-839 PO; +DEXA6TAB PO; +GABA300C10 PO; +LATA0.0019 EACHEYE; +LISI20TA28 PO; +PERCOT PO; +QUET200T30 PO; +QUET50TA PO; +ZINC220C10 PO
[2022-05-16 16:19] LABS: Basophils # (auto) 0 10 ^3/uL (0-0.2); Basophils % (auto) 0.2 % (0.0-2.0); Eosinophils # (auto) 0 10 ^3/uL (0-0.8); Hemoglobin 10.5 g/dL (12.2-16.2); Lymphocytes # (auto) 0.8 10 ^3/uL (0.4-5.4); Lymphocytes % (auto) 5.5 % (10.0-50.0); Mean Corpuscular Hemoglobin 32.2 pg (28.0-32.0); Mean Corpuscular Hgb Conc. 32.7 g/dL (32.0-36.0); Mean Corpuscular Volume 98.3 fL (80.0-100.0); Monocytes # (auto) 0.4 10 ^3/uL (0-1.3); Monocytes % (auto) 2.9 % (0.0-12.0); Neutrophils # (auto) 13.5 10 ^3/uL (1.6-8.6); Neutrophils % (auto) 91.4 % (37.0-80.0); Nucleated Red Blood Cells % 0.1 %; Red Blood Cells 3.26 10^6/uL (4.0-5.20); Red Cell Distribution Width 15.5 % (11.8-14.3); White Blood Cell 14.8 10^3/uL (4.4-10.8)
[2022-05-16 17:13] LABS: Albumin 3.3 g/dL (3.4-5.0); Calcium 8.9 mg/dL (8.5-10.1); Potassium 4.3 mmol/L (3.5-5.1)
[2022-05-16] MEDS ORDERED: PIPERACILLIN-TAZOB 3.375GM 100 ML IV ONE (17:15)
[2022-05-16] MEDS ORDERED: AZITHROMYCIN 500MG/ 250ML 250 ML IV ONE (17:15)
[2022-05-16 17:16] LABS: BUN/Creatinine Ratio 3.4 (10.0-20.0)
[2022-05-16 17:17] LABS: Bilirubin, Total 0.6 mg/dL (0.2-1.0); Total Protein 8.4 g/dL (6.4-8.2)
[2022-05-16] MEDS ORDERED: metroNIDAZOLE 500MG/100ML 100 ML IV ONE (17:45)
[2022-05-16] MEDS ORDERED: PANTOPRAZOLE 40 MG/10 ML VIAL INJ IV ONE (19:00)
[2022-05-16] MEDS ORDERED: MORPHINE SULFATE INJ 2 MG/ml SYRG IV PRN (19:00)
[2022-05-17] MEDS: metroNIDAZOLE 500MG/100ML 100 ML IV SCH ×4 (00:32→23:04)
[2022-05-17] MEDS: LISINOPRIL 20 MG TAB PO SCH ×3 (00:33→23:07)
[2022-05-17] MEDS: APIXABAN 5 MG TAB PO SCH ×3 (00:34→23:05)
[2022-05-17] MEDS ORDERED: cefTRIAXone 1GM/50ML D5W 50 ML IV SCH (09:00)
[2022-05-17 09:33] LABS: Basophils # (auto) 0.1 10 ^3/uL (0-0.2); Basophils % (auto) 0.5 % (0.0-2.0); Eosinophils # (auto) 0 10 ^3/uL (0-0.8); Eosinophils % (auto) 0.4 % (0.0-7.0); Hematocrit 32.5 % (36.0-46.0); Hemoglobin 10.5 g/dL (12.2-16.2); Lymphocytes # (auto) 1.5 10 ^3/uL (0.4-5.4); Lymphocytes % (auto) 13.5 % (10.0-50.0); Mean Corpuscular Hemoglobin 32.6 pg (28.0-32.0); Mean Corpuscular Hgb Conc. 32.4 g/dL (32.0-36.0); Mean Corpuscular Volume 100.4 fL (80.0-100.0); Monocytes # (auto) 0.6 10 ^3/uL (0-1.3); Monocytes % (auto) 5.5 % (0.0-12.0); Neutrophils % (auto) 80.1 % (37.0-80.0); Nucleated Red Blood Cells % 0.1 %; Red Blood Cells 3.24 10^6/uL (4.0-5.20); Red Cell Distribution Width 15.2 % (11.8-14.3); White Blood Cell 11.2 10^3/uL (4.4-10.8)
[2022-05-17 09:55] LABS: Albumin 3.3 g/dL (3.4-5.0); Potassium 4.8 mmol/L (3.5-5.1)
[2022-05-17 09:58] LABS: BUN/Creatinine Ratio 3.7 (10.0-20.0); Bilirubin, Total 0.5 mg/dL (0.2-1.0); Calcium 9.1 mg/dL (8.5-10.1); Total Protein 7.8 g/dL (6.4-8.2)
[2022-05-17] MEDS ORDERED: ZINC SULFATE 220mg CAP or TAB PO SCH (10:00)
[2022-05-17] MEDS ORDERED: ASCORBIC ACID 500 MG TAB PO SCH (10:00)
[2022-05-17] MEDS: CHOLECALCIFEROL (VITD3) 2,000 UNIT CAP/TAB PO SCH (10:56)
[2022-05-17] MEDS: PANTOPRAZOLE 40 MG/10 ML VIAL INJ IV SCH (10:56)
[2022-05-17] MEDS: amLODIPine BESYLATE 5 MG TAB PO SCH (10:57)
[2022-05-17] MEDS ORDERED: HYDROmorphone HCL 2 MG/ML VL/or syr IV PRN ×2 (12:00→16:30)
[2022-05-17] MEDS: OXYCODONE W/ ACETAMINOPHEN 5/325MG TABLET PO PRN (12:29)
[2022-05-17] MEDS ORDERED: hydrALAZINE HCL 20 MG/ML VL IV PRN (15:45)
[2022-05-17 23:29] VITALS: BP_SYST 145; BP_DIAS 68; BP_DIAS 75
[2022-05-18] MEDS: PIPERACILLIN-TAZOB 3.375GM 100 ML IV SCH ×3 (00:48→23:38)
[2022-05-18] MEDS: OXYCODONE W/ ACETAMINOPHEN 5/325MG TABLET PO PRN ×2 (02:27→10:21)
[2022-05-18] MEDS: metroNIDAZOLE 500MG/100ML 100 ML IV SCH ×3 (06:38→22:18)
[2022-05-18 09:00] VITALS: BP 157/97
[2022-05-18] MEDS ORDERED: diphenhdrAMINE HCL 50 MG/1 ML VL IV PRN (10:15)
[2022-05-18] MEDS: amLODIPine BESYLATE 5 MG TAB PO SCH (10:19)
[2022-05-18] MEDS: APIXABAN 5 MG TAB PO SCH ×2 (10:19→22:00)
[2022-05-18] MEDS: CHOLECALCIFEROL (VITD3) 2,000 UNIT CAP/TAB PO SCH (10:19)
[2022-05-18] MEDS: LISINOPRIL 20 MG TAB PO SCH ×2 (10:20→22:00)
[2022-05-18] MEDS: PANTOPRAZOLE 40 MG/10 ML VIAL INJ IV SCH (10:20)
[2022-05-18] MEDS ORDERED: SODIUM CHL 0.9% 1000 ML BAG XX ONE (10:30)
[2022-05-18 13:00] VITALS: BP 148/81
[2022-05-18 13:25] LABS: Basophils # (auto) 0 10 ^3/uL (0-0.2); Basophils % (auto) 0.3 % (0.0-2.0); Eosinophils # (auto) 0.1 10 ^3/uL (0-0.8); Eosinophils % (auto) 1.8 % (0.0-7.0); Hemoglobin 9.8 g/dL (12.2-16.2); Lymphocytes % (auto) 19.3 % (10.0-50.0); Mean Corpuscular Hemoglobin 32.3 pg (28.0-32.0); Mean Corpuscular Hgb Conc. 32.6 g/dL (32.0-36.0); Mean Corpuscular Volume 98.8 fL (80.0-100.0); Monocytes # (auto) 0.5 10 ^3/uL (0-1.3); Monocytes % (auto) 9.4 % (0.0-12.0); Neutrophils # (auto) 3.7 10 ^3/uL (1.6-8.6); Neutrophils % (auto) 69.2 % (37.0-80.0); Nucleated Red Blood Cells % 0.1 %; Red Blood Cells 3.03 10^6/uL (4.0-5.20); Red Cell Distribution Width 15.2 % (11.8-14.3); White Blood Cell 5.4 10^3/uL (4.4-10.8)
[2022-05-18 13:57] LABS: Potassium 4.7 mmol/L (3.5-5.1)
[2022-05-18 14:04] LABS: Albumin 3.1 g/dL (3.4-5.0); BUN/Creatinine Ratio 4.1 (10.0-20.0); Bilirubin, Total 0.5 mg/dL (0.2-1.0); Calcium 8.6 mg/dL (8.5-10.1); Total Protein 7.9 g/dL (6.4-8.2)
[2022-05-18] MEDS ORDERED: HYDROmorphone HCL 2 MG/ML VL/or syr IV PRN (14:45)
[2022-05-18] MEDS: HYDROmorphone HCL 2 MG/ML VL/or syr IV PRN (15:25)
[2022-05-18 17:00] VITALS: BP 170/86
[2022-05-18 22:00] VITALS: BP 148/81
[2022-05-19] MEDS: HYDROmorphone HCL 2 MG/ML VL/or syr IV PRN (00:30)
[2022-05-19] MEDS: cloNIDine HCL 0.1 MG TAB PO PRN ×2 (04:04→09:40)
[2022-05-19 05:00] VITALS: BP 167/97
[2022-05-19] MEDS: metroNIDAZOLE 500MG/100ML 100 ML IV SCH ×2 (06:00→14:00)
[2022-05-19 07:12] LABS: Basophils # (auto) 0 10 ^3/uL (0-0.2); Basophils % (auto) 0.7 % (0.0-2.0); Eosinophils # (auto) 0.1 10 ^3/uL (0-0.8); Eosinophils % (auto) 1.7 % (0.0-7.0); Hematocrit 30.3 % (36.0-46.0); Hemoglobin 10.1 g/dL (12.2-16.2); Lymphocytes # (auto) 0.8 10 ^3/uL (0.4-5.4); Lymphocytes % (auto) 23.8 % (10.0-50.0); Mean Corpuscular Hemoglobin 32.3 pg (28.0-32.0); Mean Corpuscular Hgb Conc. 33.4 g/dL (32.0-36.0); Mean Corpuscular Volume 96.9 fL (80.0-100.0); Monocytes # (auto) 0.1 10 ^3/uL (0-1.3); Monocytes % (auto) 2.8 % (0.0-12.0); Neutrophils # (auto) 2.3 10 ^3/uL (1.6-8.6); Nucleated Red Blood Cells % 0.2 %; Red Blood Cells 3.12 10^6/uL (4.0-5.20); White Blood Cell 3.3 10^3/uL (4.4-10.8)
[2022-05-19 07:45] LABS: Albumin 3.1 g/dL (3.4-5.0); Anion Gap 11 (5-15); Blood Urea Nitrogen 64 mg/dL (7-18); Calcium 8.6 mg/dL (8.5-10.1); Carbon Dioxide 25 mmol/L (21-32); Chloride 97 mmol/L (98-107); Glucose 107 mg/dL (74-106); Potassium 4.2 mmol/L (3.5-5.1); Sodium 133 mmol/L (136-145)
[2022-05-19 07:50] LABS: Alanine Aminotransferase 10 U/L (13-56); Alkaline Phosphatase 64 U/L (45-117); Aspartate Aminotransferase < 3 U/L (15-37); BUN/Creatinine Ratio 4.1 (10.0-20.0); Bilirubin, Total 0.5 mg/dL (0.2-1.0); GFR African American 3 mL/min; GFR Non-African American 3 mL/min; Total Protein 8.1 g/dL (6.4-8.2)
[2022-05-19 09:00] VITALS: BP 194/98
[2022-05-19] MEDS ORDERED: AUG875T PO (09:26)
[2022-05-19] MEDS: PANTOPRAZOLE 40 MG/10 ML VIAL INJ IV SCH (09:37)
[2022-05-19] MEDS: CHOLECALCIFEROL (VITD3) 2,000 UNIT CAP/TAB PO SCH (09:40)
[2022-05-19] MEDS: APIXABAN 5 MG TAB PO SCH (09:40)
[2022-05-19] MEDS: amLODIPine BESYLATE 5 MG TAB PO SCH (09:42)
[2022-05-19] MEDS: LISINOPRIL 20 MG TAB PO SCH (09:43)
[2022-05-19] MEDS: PIPERACILLIN-TAZOB 3.375GM 100 ML IV SCH (12:05)
[2022-05-19] MEDS: OXYCODONE W/ ACETAMINOPHEN 5/325MG TABLET PO PRN (12:48)
[2022-05-19 12:57] VITALS: BP 130/70
[2022-05-19 13:18] VITALS: BP 130/76
[2022-05-19 14:31] LABS: Hepatitis A Ab IgM Negative
[2022-05-19 14:32] LABS: Hepatitis B Core IgM Negative; Hepatitis C Antibody Negative (Negative)
== END 2022-05-19 14:20 | disposition home or self-care (01) | DRG 391 ==
LOC: ER 15:24 → EDBD 15:24 → OVERFLOW 19:03 → CENTRAL 05-17 21:36
PROVIDERS: ADMIT Nurse Practitioner Family; ATTEND Internal Medicine
PROC: 5A1D70Z Performance of Urinary Filtration, Intermittent, Less than 6 Hours Per Day (ICD-10-PCS; principal; 2022-05-18)
DX: K52.9 Noninfective gastroenteritis and colitis, unspecified (principal); N18.6 End stage renal disease; E46 Unspecified protein-calorie malnutrition; I12.0 Hypertensive chronic kidney disease with stage 5 chronic kidney disease or end stage renal disease; Z68.30 Body mass index [BMI] 30.0-30.9, adult; D64.9 Anemia, unspecified; G40.909 Epilepsy, unspecified, not intractable, without status epilepticus; G89.4 Chronic pain syndrome; K80.20 Calculus of gallbladder without cholecystitis without obstruction; F17.210 Nicotine dependence, cigarettes, uncomplicated; E66.9 Obesity, unspecified; Z20.822 Contact with and (suspected) exposure to COVID-19; Z99.2 Dependence on renal dialysis; Z88.5 Allergy status to narcotic agent
CPT/HCPCS: 36415; 71045; 74176; 76705; 80053; 80074; 82150; 83605; 83690; 85025; 87040; 87081; 87426; 90935; C9113; G0378; J0696; J2543; J3490

== ENCOUNTER 2022-09-06 10:05 | Inpatient (IN) | payer OTHER, MEDICAID ==
[~2022-09-06] VITALS: Ht 157.5 cm; Wt 78.5 kg
[~2022-09-06 10:05] MED LIST changes: -AMLO-496 PO; +AMLO1TAB23 PO; -ASCO500T11 PO; +AUG875T PO; -DEXA6TAB PO; +GABA-1250 PO; -GABA300C10 PO; -LATA0.0019 EACHEYE; +LATA0.008 EACHEYE; -LISI20TA28 PO; +LISI20TA56 PO; -ZINC220C10 PO
[2022-09-06 11:00] VITALS: PULSE 89; RESP 18; O2SAT 96
[2022-09-06 11:43] LABS: Basophils # (auto) 0 10 ^3/uL (0-0.2); Basophils % (auto) 0.9 % (0.0-2.0); Eosinophils # (auto) 0.1 10 ^3/uL (0-0.8); Eosinophils % (auto) 1.9 % (0.0-7.0); Hemoglobin 10.3 g/dL (12.2-16.2); Lymphocytes # (auto) 1.5 10 ^3/uL (0.4-5.4); Lymphocytes % (auto) 35.3 % (10.0-50.0); Mean Corpuscular Hemoglobin 32.8 pg (28.0-32.0); Mean Corpuscular Hgb Conc. 33.3 g/dL (32.0-36.0); Mean Corpuscular Volume 98.5 fL (80.0-100.0); Monocytes # (auto) 0.3 10 ^3/uL (0-1.3); Monocytes % (auto) 7.1 % (0.0-12.0); Neutrophils # (auto) 2.3 10 ^3/uL (1.6-8.6); Neutrophils % (auto) 54.8 % (37.0-80.0); Nucleated Red Blood Cells % 0.1 %; Red Blood Cells 3.15 10^6/uL (4.0-5.20); Red Cell Distribution Width 14.5 % (11.8-14.3); White Blood Cell 4.2 10^3/uL (4.4-10.8)
[2022-09-06] MEDS ORDERED: PANTOPRAZOLE 40 MG/10 ML VIAL INJ IV ONE (11:45)
[2022-09-06] MEDS ORDERED: PROCHLORPERAZINE EDISYLATE 5 MG/ML 2ML VIAL IM ONE (11:45)
[2022-09-06 12:16] LABS: Albumin 3.6 g/dL (3.4-5.0); Calcium 8.2 mg/dL (8.5-10.1); Magnesium 2.8 mg/dL (1.6-2.6); Potassium 4.7 mmol/L (3.5-5.1)
[2022-09-06 12:32] LABS: BUN/Creatinine Ratio 3.3 (10.0-20.0); Bilirubin, Total 0.4 mg/dL (0.2-1.0); Total Protein 7.8 g/dL (6.4-8.2)
[2022-09-06] MEDS ORDERED: amLODIPine BESYLATE 5 MG TAB ONE (13:23)
[2022-09-06] MEDS ORDERED: LISINOPRIL 20 MG TAB ONE (13:23)
[2022-09-06] MEDS ORDERED: ACETAMINOPHEN 325 MG TAB PO PRN (13:30)
[2022-09-06] MEDS ORDERED: amLODIPine BESYLATE 5 MG TAB PO ONE (13:30)
[2022-09-06] MEDS ORDERED: HYDROmorphone HCL 2 MG/ML VL/or syr IV PRN (13:30)
[2022-09-06] MEDS ORDERED: DOCUSATE SOD 100 MG CAP PO PRN (13:30)
[2022-09-06] MEDS ORDERED: LISINOPRIL 20 MG TAB PO ONE (13:30)
[2022-09-06] MEDS ORDERED: IOHEXOL 300 MG/ML 100ML BOTTLE IJ ONE (14:27)
[2022-09-06] MEDS: CYCLOBENZAPRINE HCL 10 MG TAB PO SCH ×2 (14:28→21:59)
[2022-09-06] MEDS: SODIUM CHLOR 0.9% PF (SALINE LOCK) 10ML VIAL/SYR IV SCH ×2 (14:29→21:55)
[2022-09-06] MEDS ORDERED: LABETALOL HCL 5 MG/ML 4ML SYRINGE IV ONE (14:45)
[2022-09-06] MEDS ORDERED: LABETALOL HCL 5 MG/ML 4ML SYRINGE IV PRN (14:45)
[2022-09-06] MEDS: SUCRALFATE 1 GM TAB PO SCH ×2 (17:57→21:59)
[2022-09-06] MEDS ORDERED: LATANOPROST 0.005 % OPTH(EYE) SOL 2.5ML EACHEYE SCH (18:00)
[2022-09-06] MEDS: hydrALAZINE HCL 20 MG/ML VL IV PRN (18:46)
[2022-09-06] MEDS: APIXABAN 5 MG TAB PO SCH (21:59)
[2022-09-06] MEDS: LISINOPRIL 20 MG TAB PO SCH (22:01)
[2022-09-06] MEDS: ONDANSETRON HCL 4 MG/2 ML VIAL IV PRN (22:08)
[2022-09-07] MEDS: hydrALAZINE HCL 20 MG/ML VL IV PRN ×2 (02:44→15:50)
[2022-09-07] MEDS: SODIUM CHLOR 0.9% PF (SALINE LOCK) 10ML VIAL/SYR IV SCH ×3 (05:49→14:40)
[2022-09-07] MEDS: CYCLOBENZAPRINE HCL 10 MG TAB PO SCH ×3 (06:06→14:04)
[2022-09-07] MEDS: SUCRALFATE 1 GM TAB PO SCH ×3 (06:06→16:45)
[2022-09-07] MEDS: ONDANSETRON HCL 4 MG/2 ML VIAL IV PRN (09:08)
[2022-09-07 09:33] VITALS: BP 149/86; PULSE 107; RESP 16; TEMP 98.5; O2SAT 95
[2022-09-07] MEDS ORDERED: CHOLECALCIFEROL (VITD3) 2,000 UNIT CAP/TAB PO SCH (10:00)
[2022-09-07] MEDS ORDERED: PANTOPRAZOLE 40 MG/10 ML VIAL INJ IV SCH (10:00)
[2022-09-07] MEDS ORDERED: PATIENTS OWN MEDICATION (Amlodipine Besylate 10 MG) PO SCH (10:00)
[2022-09-07] MEDS ORDERED: BUMETANIDE 1 MG TAB PO SCH (10:00)
[2022-09-07] MEDS ORDERED: amLODIPine BESYLATE 5 MG TAB PO SCH (10:00)
[2022-09-07] MEDS: APIXABAN 5 MG TAB PO SCH (10:17)
[2022-09-07] MEDS: LISINOPRIL 20 MG TAB PO SCH (10:17)
[2022-09-07] MEDS ORDERED: SODIUM CHL 0.9% 1000 ML BAG XX ONE (11:15)
[2022-09-07 12:42] VITALS: BP 165/94; PULSE 110; RESP 16; TEMP 98.2; O2SAT 98
[2022-09-07 13:16] LABS: Basophils # (auto) 0 10 ^3/uL (0-0.2); Basophils % (auto) 0.6 % (0.0-2.0); Eosinophils # (auto) 0 10 ^3/uL (0-0.8); Eosinophils % (auto) 0.9 % (0.0-7.0); Hematocrit 34.8 % (36.0-46.0); Hemoglobin 11.4 g/dL (12.2-16.2); Lymphocytes # (auto) 1.3 10 ^3/uL (0.4-5.4); Lymphocytes % (auto) 26.1 % (10.0-50.0); Mean Corpuscular Hgb Conc. 32.8 g/dL (32.0-36.0); Mean Corpuscular Volume 97.6 fL (80.0-100.0); Monocytes # (auto) 0.2 10 ^3/uL (0-1.3); Monocytes % (auto) 3.9 % (0.0-12.0); Neutrophils # (auto) 3.4 10 ^3/uL (1.6-8.6); Neutrophils % (auto) 68.5 % (37.0-80.0); Nucleated Red Blood Cells % 0.2 %; Red Blood Cells 3.57 10^6/uL (4.0-5.20); Red Cell Distribution Width 14.6 % (11.8-14.3)
[2022-09-07 13:23] LABS: Albumin 3.7 g/dL (3.4-5.0); Calcium 8.6 mg/dL (8.5-10.1); Magnesium 2.4 mg/dL (1.6-2.6)
[2022-09-07 13:27] LABS: BUN/Creatinine Ratio 3.2 (10.0-20.0); Bilirubin, Total 0.5 mg/dL (0.2-1.0); Total Protein 8.3 g/dL (6.4-8.2)
[2022-09-07 16:30] VITALS: BP 188/127; PULSE 120; RESP 16; TEMP 98.1; O2SAT 97
[2022-09-07] MEDS ORDERED: cloNIDine HCL 0.1 MG TAB PO PRN (16:45)
[2022-09-07] MEDS: CARVEDILOL 12.5 MG TAB PO SCH ×2 (16:59→17:07)
[2022-09-07] MEDS ORDERED: NIFEdipine ER 30 MG TAB PO SCH (22:00)
[2022-09-08] MEDS ORDERED: SODIUM CHL 0.9% 1000 ML BAG XX ONE (07:00)
== END 2022-09-07 18:30 | disposition left against medical advice (07) | DRG 438 ==
LOC: EDBD 10:05 → ER 10:05 → TELE 13:28 → TELE-EAST 09-07 09:06
PROVIDERS: ADMIT Internal Medicine Geriatric Medicine; ATTEND Internal Medicine Geriatric Medicine
PROC: 5A1D70Z Performance of Urinary Filtration, Intermittent, Less than 6 Hours Per Day (ICD-10-PCS; principal; 2022-09-07)
DX: K85.90 Acute pancreatitis without necrosis or infection, unspecified (principal); N18.6 End stage renal disease; I12.0 Hypertensive chronic kidney disease with stage 5 chronic kidney disease or end stage renal disease; E87.1 Hypo-osmolality and hyponatremia; E87.20 Acidosis, unspecified; N20.0 Calculus of kidney; K21.9 Gastro-esophageal reflux disease without esophagitis; D63.1 Anemia in chronic kidney disease; Z53.29 Procedure and treatment not carried out because of patient's decision for other reasons; E87.5 Hyperkalemia; E87.70 Fluid overload, unspecified; Z86.711 Personal history of pulmonary embolism; Z99.2 Dependence on renal dialysis; Z88.0 Allergy status to penicillin; Z88.1 Allergy status to other antibiotic agents; Z91.158 Patient's noncompliance with renal dialysis for other reason; Z91.199 Patient's noncompliance with other medical treatment and regimen due to unspecified reason; Z88.6 Allergy status to analgesic agent
CPT/HCPCS: 36415; 71045; 74176; 76705; 80053; 83690; 83735; 84484; 84702; 85025; 90935; 96372; 96374; C9113; G0378; J2405; J3490

== ENCOUNTER 2024-09-18 13:55 | Emergency (ER) | payer OTHER, MEDICAID ==
[~2024-09-18] VITALS: Ht 170.2 cm; Wt 84.0 kg
--- NOTE | 2024-09-18 14:15 | ED.PDOC ---
History of Present Illness HPI Comments This is a 38-year-old female with past medical history of ESRD on hemodialysis 3 times a week, hypertension, PE on Eliquis, bipolar disorder, seizure disorder and schizophrenia presented to the ED via EMS from dialysis center due to chest pain. According to the EMS the patient was complaining of chest pain during the dialysis, it was substernal pressure-like chest pain, 7/10, radiates to the left arm and associated with shortness of breath, dizziness and nausea. The EMS also mentioned that patient is hyperventilating when they found the patient, this time given nitroglycerin and on route patient got aspirin 325 mg p.o. once which mildly relieved the chest pain. She denies fever, chills, vomiting, abdominal pain, dysuria, hematuria or any change in bowel habit. Chief Complaint: Chest Pain Time Seen by MD: 13:57 Primary Care Provider: VALENTIN Allergies: Coded Allergies: Amoxicillin (Verified Allergy, Unknown, 09/06/22) Cephalexin (Verified Allergy, Unknown, 09/06/22) Morphine (Verified Allergy, Unknown, 03/09/21) Home Meds Active Scripts Amoxicillin & Pot Clavulanate (AUGMENTIN TABLET) 875 Mg Tb, 875 MG PO BID for 10 Days, #20 TAB Prov:DUC NICHOLSON MD 05/19/22 Cholecalciferol (Vitamin D3 Super Strength) 2,000 Unit Cap, 2000 UNIT PO DAILY for 30 Days, #30 CAP Prov:MICHELLE MCKEON MD 08/22/21 Lisinopril (Lisinopril) 20 Mg Tab, 20 MG PO BID for 30 Days, #60 TAB Prov:MICHELLE MCKEON MD 08/22/21 Pantoprazole Sodium Sesquihydr (Protonix) 40 Mg Tab, 40 MG PO DAILY, #30 TAB 2 Refills Prov:MICHELLE MCKEON MD 03/10/21 Sucralfate (Sucralfate) 1 Gm Tab, 1 GM PO QIDACHS for 30 Days, #120 TAB Prov:MICHELLE MCKEON MD 03/10/21 Reported Medications Amlodipine Besylate (Amlodipine Besylate) 10 Mg Tab, 10 MG PO DAILY, TAB 08/20/21 Latanoprost (LATANOPROST) 0.005 % Estefani, 1 DROP EACHEYE QPM, #7.5 ML 3 Refills 08/20/21 Bumetanide (Bumetanide) 2 Mg Tab, 2 MG PO DAILY for 30 Days, MG 08/20/21 Cyclobenzaprine Hcl (Cyclobenzaprine Hcl) 10 Mg Tab, 10 MG PO Q8HR for 30 Days, MG 08/20/21 Oxycodone W/ Acetaminophen (Percocet 5/325MG) 1 Tab Tb, 1 TAB PO BID, #60 TAB 08/20/21 Gabapentin (Gabapentin) 300 Mg Cap, 300 MG PO for 30 Days, MG 08/20/21 Quetiapine Fumerate (Seroquel) 200 Mg Tab, 200 MG PO, TAB 08/20/21 Quetiapine Fumerate (Seroquel) 50 Mg Tab, 50 MG PO, TAB 08/20/21 Alprazolam (Alprazolam) 1 Mg Tab, 1 MG PO, TAB 08/20/21 Apixaban Base (ELIQUIS) 5 Mg Tab, 5 MG PO BID, TAB 08/20/21 Information Source: Patient, Emergency Med Personnel Mode of Arrival: EMS Severity: Moderate Timing: Hours Duration: Since onset Prehospital treatment: ASA, NTG Past Medical History PAST MEDICAL HISTORY: CKF, HTN, Schizophrenia, Seizures Surgical History: Denies all surgeries SHEETER 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 History Family History Family History: Family hx of Kidney omari Social History Smoker: Cigarettes Alcohol: Occasionally Drugs: Marijuana Lives In: Home Constitutional: denies: chills, diaphoresis, fatigue, fever, malaise, sweats, weakness, others EENTM: denies: blurred vision, double vision, ear bleeding, ear discharge, ear drainage, ear pain, ear ringing, eye pain, eye redness, hearing loss, mouth pain, mouth swelling, nasal discharge, nose bleeding, nose congestion, nose pain, photophobia, tearing, throat pain, throat swelling, voice changes, others Respiratory: denies: cough, hemoptysis, orthopnea, SOB at rest, shortness of breath, SOB with excertion, stridor, wheezing, others Cardiovascular: reports: chest pain, left arm pain; denies: dizzy spells, diaphoresis, Dyspnea on exertion, edema, irregular heart beat, lightheadedness, palpitations, PND, syncope, others Gastrointestinal: denies: abdomen distended, abdominal pain, blood streaked bowels, constipated, diarrhea, dysphagia, difficulty swallowing, hematemesis, melena, nausea, poor appetite, poor fluid intake, rectal bleeding, rectal pain, vomiting, others Genitourinary: denies: abnormal vagina bleeding, burning, dyspareunia, dysuria, flank pain, frequency, hematuria, incontinence, pain, , vagina d ischarge, urgency, others Neurological: reports: headache; denies: dizziness, fainting, left sided numbness, left sided weakness, numbness, paresthesia, pre-existing deficit, right sided numbness, right sided weakness, seizure, speech problems, tingling, tremors, weakness, others Musculoskeletal: denies: back pain, gout, joint pain, joint swelling, muscle pain, muscle stiffness, neck pain, others Integumetry: denies: bruises, change in color, change in hair/nails, dryness, laceration, lesions, lumps, rash, wounds, others Allergic/Immunocompromised: denies: Difficulty Healing, Frequent Infections, Hives, Itching, others Hematologic/Lymphatic: denies: anemia, blood clots, easy bleeding, easy bruising, swollen glands, others Endocrine: denies: excessive hunger, excessive sweating, excessive thirst, excessive urination, flushing, intolerance to cold, intolerance to heat, unexplained weight gain, unexplained weight loss, others Psychiatric: reports: bipolar disorder, schizophrenia; denies: anxiety, depression, hopeless, panic disorder, sleepless, suicidal, others Physical Exam General Appearance: Mild Distress HEENT: Normal ENT Inspection, Pharynx Normal, TMs Normal Neck: Full Range of Motion, Non-Tender, Normal, Normal Inspection Respiratory: Chest Non-Tender, Lungs Clear, No Accessory Muscle Use, No Respiratory Distress, Normal Breath Sounds Cardiovascular: No Edema, No JVD, No Murmur, No Gallop, Normal Peripheral Pulses, Regular Rate/Rhythm, Other (Fistula in the left arm) Breast Exam: Deferred Gastrointestinal: No Organomegaly, Non Tender, No Pulsatile Mass, Normal Bowel Sounds, Soft Genitalia: Deferred Pelvic: Deferred Rectal: Deferred Extremities: No calf tenderness, Normal capillary refill, Normal inspection, Normal range of motion, Non-tender, No pedal edema Neurologic: NOT DONE Cerebellar Function: NOT DONE Reflexes: NOT DONE Skin: NOT DONE Peripheral Pulses: 2+ carotid (R), 2+ carotid (L), 2+ femoral (R), 2+ femoral (L), 2+ dorsalis pedis (R), 2+ dorsalis pedis (L), 2+ Radial (R), 2+ Radial (L), 2+ Brachial (R), 2+ Brachial (L) Lymphatic: NOT DONE Was a procedure done? Was a procedure done?: No Differential Dx Considerations may include: Unstable angina, musculoskeletal chest pain, migraine, hypokalemia, ESRD X-Ray, Labs, Meds, VS Vital Signs Date Time Temp Pulse Resp B/P (MAP) Pulse Ox O2 Delivery O2 Flow Rate FiO2 09/18/24 17:00 93 12 95/54 (68) 97 09/18/24 15:30 89 12 93 Room Air* 0 21 09/18/24 15:15 98.9 89 12 99/61 (74) 93 98.9 09/18/24 14:55 92 09/18/24 14:05 90 09/18/24 14:01 98.2 95 17 125/71 97 98.2 Lab Test 09/18/24 15:18 09/18/24 14:28 Range/Units Troponin I High Sensitivity < 3 L < 3 L </=34 ng/L White Blood Count 5.7 4.4-10.8 10^3/uL Red Blood Count 4.15 4.0-5.20 10^6/uL Hemoglobin 14.1 12.2-16.2 g/dL Hematocrit 41.8 36.0-46.0 % Mean Corpuscular Volume 100.7 H 80.0-100.0 fL Mean Corpuscular Hemoglobin 33.9 H 28.0-32.0 pg Mean Corpuscular Hemoglobin Concent 33.6 32.0-36.0 g/dL Red Cell Distribution Width 14.6 H 11.8-14.3 % Platelet Count 153 140-450 10^3/uL Mean Platelet Volume 7.9 6.9-10.8 fL Neutrophils (%) (Auto) 46.1 37.0-80.0 % Lymphocytes (%) (Auto) 44.4 10.0-50.0 % Monocytes (%) (Auto) 7.5 0.0-12.0 % Eosinophils (%) (Auto) 1.3 0.0-7.0 % Basophils (%) (Auto) 0.7 0.0-2.0 % Neutrophils # (Auto) 2.6 1.6-8.6 10 ^3/uL Lymphocytes # (Auto) 2.5 0.4-5.4 10 ^3/uL Monocytes # (Auto) 0.4 0-1.3 10 ^3/uL Eosinophils # (Auto) 0.1 0-0.8 10 ^3/uL Basophils # (Auto) 0 0-0.2 10 ^3/uL Nucleated Red Blood Cells 0.3 % Sodium Level 134 L 136-145 mmol/L Potassium Level 3.3 L 3.5-5.1 mmol/L Chloride Level 91 L 98-107 mmol/L Carbon Dioxide Level 31 20-31 mmol/L Anion Gap 12 5-15 Blood Urea Nitrogen 16 9-23 mg/dL Creatinine 7.89 H 0.550-1.02 mg/dL Glomerular Filtration Rate Calc 6 >90 mL/min BUN/Creatinine Ratio 2.0 L 10.0-20.0 Serum Glucose 90 74-106 mg/dL Calcium Level 10.1 8.7-10.4 mg/dL B-Type Natriuretic Peptide 14.08 0-100 pg/mL Current Medications Medications (Trade) Dose Ordered Sig/Radhika Route Start Time Stop Time Status Last Admin Potassium Bicarbonate (Klor-Con/Ef) 25 meq ONCE ONCE PO 09/18/24 15:15 09/18/24 15:35 DC 09/18/24 15:52 Acetaminophen (Tylenol Tablet Or Capsule) 650 mg ONCE ONCE PO 09/18/24 15:15 09/18/24 15:35 DC 09/18/24 15:52 X-Ray, Labs, Meds, VS Comment CHEST RADIOGRAPH Indication: Chest pain Technique: Single frontal view of the chest was obtained COMPARISON: XY CHEST PORTABLE on DOS: 09/06/22, XY CHEST PORTABLE on DOS: 05/16/22, CXRP on DOS: 08/18/21, CHEST PORTABLE on DOS: 08/18/21, CHEST PORTABLE on DOS: 04/26/20 FINDINGS: Lines and Tubes: None Lungs: Congestion Pleura: No effusion. No pneumothorax. Cardiomediastinal contours: Unremarkable Bones: Unremarkable IMPRESSION: Increased interstital prominence. This may represent pulmonary vascular congestion and/or viral pneumonia. Clinical correlation advised. Images Reviewed?: Images reviewed and evaluated by me Time of 1ST Reevaluation: 17:58 Reevaluation 1ST: Improved Patient Education/Counseling: Diagnosis, Treatment Family Education/Counseling: No Family Present Comments This is a 38-year-old female with ESRD on hemodialysis 3 times a week brought in to the ED via EMS from dialysis center with a chief complaint of chest pain. Initial EKG demonstrated sinus rhythm, nonspecific ST-T changes Troponin were unremarkable Chest x-ray showed Increased interstital prominence. This may represent pulmonary vascular congestion and/or viral pneumonia. The patient was treated initially with nitroglycerin 0.4 mg sublingual and aspirin 325 mg p.o. once CBC was normal, BMP showed hypokalemia which was replace patient's complaint of leg cramps and ongoing chest pain and headache. The patient will need inpatient admission for further evaluation and management of chest pain SEPSIS Sepsis Screen Date sepsis recognized/suspect: Sep 18, 2024 Time Sepsis recognized/suspect: 1403 Recent Procedure: No On Antibiotic Therapy: No Respiratory Rate >20: No Heart Rate >90: Yes Temp<36 C (96.8 F) or >38.3 C: No SBP <90 or MAP <65 mmHG: No New Acute Mental Status Change: No Is the patient on CPAP, BIPAP,: No Physician Orders Electrocardigram (09/18/24 14:12) Electrocardigram (09/18/24 15:12) Electrocardigram (09/18/24 17:12) Chest Portable (09/18/24 14:12) Vital Signs Date Time Temp Pulse Resp B/P (MAP) Pulse Ox O2 Delivery O2 Flow Rate FiO2 09/18/24 17:00 93 12 95/54 (68) 97 09/18/24 15:30 89 12 93 Room Air* 0 21 09/18/24 15:15 98.9 89 12 99/61 (74) 93 98.9 09/18/24 14:55 92 09/18/24 14:05 90 09/18/24 14:01 98.2 95 17 125/71 97 98.2 Laboratory Tests Test 09/18/24 14:28 White Blood Count 5.7 10^3/uL (4.4-10.8) Medications Medications Dose Ordered Sig/Radhika Route Start Time Stop Time Status Last Admin Dose Admin Acetaminophen 650 mg ONCE ONCE PO 09/18/24 15:15 09/18/24 15:35 DC 09/18/24 15:52 Potassium Bicarbonate 25 meq ONCE ONCE PO 09/18/24 15:15 09/18/24 15:35 DC 09/18/24 15:52 Departure 1 Departure Time of Disposition: 18:03 Impression: Primary Impression: Chest pain Additional Impression: ESRD (end stage renal disease) on dialysis Disposition: 30 STILL A PATIENT Admit to: Tele Condition: Guarded Critical Care Note Critical Care Time?: No Stability Stability form required: No Heart Score Heart Score: Heart Score Response (Comments) Value History Moderate Suspicious 1 EKG Repolarization Disturb 1 Age <45 0 Risk Factors 1 or 2 risk factors 1 Troponin Normal limit 0 Total 3 DARA GALARZA RESIDENT Sep 18, 2024 14:14
[2024-09-18 14:38] LABS: Hematocrit 41.8 % (36.0-46.0); Hemoglobin 14.1 g/dL (12.2-16.2); Mean Corpuscular Hemoglobin 33.9 pg (28.0-32.0); Mean Corpuscular Volume 100.7 fL (80.0-100.0); Nucleated Red Blood Cells % 0.3 %
--- NOTE | 2024-09-18 14:44 | DVH ---
CHEST RADIOGRAPH Indication: Chest pain Technique: Single frontal view of the chest was obtained COMPARISON: XY CHEST PORTABLE on DOS: 09/06/22, XY CHEST PORTABLE on DOS: 05/16/22, CXRP on DOS: 08/18/21 , CHEST PORTABLE on DOS: 08/18/21, CHEST PORTABLE on DOS: 04/26/20 FINDINGS: Lines and Tubes: None Lungs: Congestion Pleura: No effusion. No pneumothorax. Cardiomediastinal contours: Unremarkable Bones: Unremarkable IMPRESSION: Increased interstital prominence. This may represent pulmonary vascular congestion and/or viral pneum onia. Clinical correlation advised.
[2024-09-18 14:50] LABS: Anion Gap 12 (5-15); Calcium 10.1 mg/dL (8.7-10.4)
[2024-09-18 14:54] LABS: Carbon Dioxide 31 mmol/L (20-31); Chloride 91 mmol/L (98-107); Potassium 3.3 mmol/L (3.5-5.1); Sodium 134 mmol/L (136-145)
[2024-09-18 14:55] LABS: BUN/Creatinine Ratio 2.0 (10.0-20.0); Blood Urea Nitrogen 16 mg/dL (9-23); Glucose 90 mg/dL (74-106)
[2024-09-18 15:15] VITALS: TEMP 98.9
[2024-09-18 15:30] VITALS: PULSE 89; RESP 12; O2SAT 93
[2024-09-18] MEDS: ACETAMINOPHEN 500 MG TAB or CAP PO ONE (15:52)
[2024-09-18] MEDS: POTASSIUM EFFERVESENT TAB 25 MEQ PO ONE (15:52)
[2024-09-18 17:00] VITALS: BP 95/54; PULSE 93; RESP 12; O2SAT 97
[2024-09-18] MEDS: OXYCODONE W/ ACETAMINOPHEN 5/325MG TABLET PO ONE (18:54)
--- NOTE | 2024-09-18 19:17 | ECG ---
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
--- NOTE | 2024-09-20 11:55 | ECG ---
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
== END 2024-09-18 19:38 | disposition left against medical advice (07) ==
LOC: EDBD 13:55 → ER 13:55 → EDSEX 13:55 → ER 19:38
DX: R07.89 Other chest pain (principal); I12.0 Hypertensive chronic kidney disease with stage 5 chronic kidney disease or end stage renal disease; N18.6 End stage renal disease; F20.9 Schizophrenia, unspecified; F17.210 Nicotine dependence, cigarettes, uncomplicated; F12.90 Cannabis use, unspecified, uncomplicated; F10.90 Alcohol use, unspecified, uncomplicated; G40.909 Epilepsy, unspecified, not intractable, without status epilepticus; Z99.2 Dependence on renal dialysis; Z88.1 Allergy status to other antibiotic agents; Z88.0 Allergy status to penicillin; Z79.899 Other long term (current) drug therapy; Z79.01 Long term (current) use of anticoagulants; Z88.5 Allergy status to narcotic agent
CPT/HCPCS: 36415; 71045; 80048; 83880; 84484; 85025; 93005